=== PATIENT | male | born 1945 | race Caucasian/White ===

== ENCOUNTER → 2024-02-11 07:51 | Outpatient (REF) | payer MEDICARE, OTHER, SELFPAY | LOC: DHCBC/DCA 07:51 | PROVIDERS: ATTENDING PHYSICIAN Family Medicine | DX: I25.10 Atherosclerotic heart disease of native coronary artery without angina pectoris (principal) | CPT/HCPCS: 78452; 93017; A9500 ==

== ENCOUNTER → 2024-03-01 09:55 | Outpatient (REF) | payer MEDICARE, OTHER, SELFPAY | LOC: HWRAD 09:55 | PROVIDERS: ATTENDING PHYSICIAN Urology; FAMILY PHYSICIAN Family Medicine | DX: N20.9 Urinary calculus, unspecified (principal) | CPT/HCPCS: 76775 ==

== ENCOUNTER 2024-05-12 03:24 | Emergency (ER) | payer MEDICARE, OTHER, SELFPAY ==
[2024-05-12 03:29] VITALS: BP 164/84
[2024-05-12 03:46] VITALS: BMI 23.2
--- NOTE | 2024-05-12 04:30 | ED.GENMED ---
History of Present Illness
General
Chief Complaint: Abdominal Pain
Source: patient
Exam Limitations: none
Time Seen by Provider: 05/12/24 04:09
Nursing documentation reviewed up to this point in time: agreed with
History of Present Illness
History of Present Illness:
This is a 79-year-old gentleman who has history of hyperlipidemia, osteoarthritis, remote history of bladder cancer removed by cystoscopy 7 to 8 years ago, not requiring adjuvant chemotherapy.
He complains of somewhat abrupt onset of moderate to severe left lower quadrant abdominal pain that woke him from sleep approximately 2 to 3 hours ago. Left lower quadrant abdominal pain described as sharp accompanied with nausea, feeling somewhat
restless and occasional radiation to his left groin/left testicle. He denies back pain or flank pain, no history of similar episodes of pain. He has not taken anything for discomfort. Pain has improved but has not resolved.
He denies dysuria and urgency and or hematuria, denies diarrhea nor constipation, no fever nor chills.
No history of similar episodes of pain.
He did undergo dental work yesterday, and dental implant and is currently taking amoxicillin and was prescribed tramadol for pain, his last dose was 6:30 PM last night.
His only daily medications are simvastatin, Mobic, vitamins.
He has driven himself to the ED.
Past History
Past History
ED Past Medical History: Cancer (Bladder cancer, removed via cystoscopy 7 to 8 years ago. Not requiring adjuvant chemotherapy.), Hypercholesterolemia and Other (Osteoarthritis)
ED Past Surgical History: Urological
Social History
Tobacco: Non-smoker
Alcohol: Occasional
Personal:
Living: with family
Employment: Retired
Family History
Family History: Other (Noncontributory)
Phy Exam
Physical Exam
Physical Exam:
GENERAL: 79-year-old gentleman appears his stated age, awake and alert, pleasant, appears in no acute distress.
EYE: . anicteric
NECK: Supple, nontender, no meningismus, no significant adenopathy.
ENT: oral mucosa is moist. No rhinorrhea. No gingival edema nor facial swelling.
CARDIAC: Regular rate and rhythm. no murmur.
LUNGS: Clear breath sounds bilaterally, no acute respiratory distress, no wheezes/rales/rhonchi
ABDOMEN: Soft, nondistended, without focal tenderness, no r/g, no cvat. normoactive BS. No inguinal tenderness nor palpable masses.
NEUROLOGICAL: Alert and oriented x3, no focal neuro deficits. Gait is mays and steady.
SKIN: Warm and dry, normal color, skin intact. No rash.
MUSCULOSKELETAL: No C/C/E. peripheral pulses are full and equal b/l. No palpable tenderness.
PSYCH: Normal and appropriate interaction.
Course
Orders/Labs/Results
Orders:
Orders
05/12/24 04:20
Complete Blood Count/With Diff Urgent
Comprehensive Metabolic Panel Urgent
Lactic Acid Urgent
Lipase Urgent
Urinalysis Reflex To Culture Urgent
Date Specimen was Collected: 05/12/24
Time Specimen was Collected: 04:12
Urine Microscopic Reflex Cult Urgent
05/12/24 04:28
Ketorolac [Toradol] 15 mg IV NOW STA
Ondansetron Injectable [Zofran] 4 mg IV NOW STA
05/12/24 04:29
CT Abd/pel Without Iv Or Oral Urgent
Comment:
Reason For Exam: acute LLQ pain w N
Abnormal Lab Results
05/12/24
04:20
RBC 4.37 L 10^6/uL
(4.70-6.10)
MCH 31.6 H pg
(27.0-31.0)
Absolute Lymphs (auto) 0.9 L 10^3/uL
(1.2-3.4)
Neutrophils % 81.1 H %
(42.2-75.2)
Lymphocytes % 12.3 L %
(20.5-51.1)
BUN 29 H mg/dl
(9-20)
Glucose 120 H mg/dl
(70-99)
Lipase 860 H U/L
(23-300)
Urine Ketones Trace A
(Negative)
Ur Occult Blood Reflex 1+ A
(Negative)
05/12/24 04:20
05/12/24 04:20
Vital Signs
Initial and Last Documented VS:
Initial Vital Signs
Temp Pulse Resp BP Pulse Ox
98.9 F 66 24 164/84 100
05/12/24 03:29 05/12/24 03:05/12/24 03:29 05/12/24 03:29 05/12/24 03:29
Last Documented Vital Signs
Temp Pulse Resp BP Pulse Ox
98.9 F 66 24 164/84 100
05/12/24 03:29 05/12/24 03:29 05/12/24 03:29 05/12/24 03:29 05/12/24 03:29
MDM/Problems Addressed
Differential Diagnosis Includes:
Concern for acute renal colic/left ureteric stone, UTI, colitis, constipation, spastic colon, diverticulitis. Less likely ischemic bowel.
Abdominal exam is overall benign, without appreciable tenderness lending made to suspect ureteric stone/renal colic as cause for pain.
Will medicate for pain and nausea, check labs and urinalysis and plan for CT abdomen pelvis.
*Radiology
Radiology exam reviewed: radiology read reviewed (CAT scan shows mild left hydroureteronephrosis secondary to a 7 mm stone lodged in the proximal left ureter.)
*Pulse Oximetry
Patient hypoxic: no
*Critical Care Note
Total Time (30-74mins, 75-104mins- exclusive of procedures): Not Applicable
Update Note
Update Note:
05/12/2024 0603 AM
Patient resting comfortably, reports moderate relief of pain and no further nausea.
Labs are unremarkable save for mildly elevated lipase. He continues to have no epigastric abdominal pain. Creatinine of 1.2, at his baseline.
Urinalysis +1 occult blood, trace ketones otherwise unremarkable.
CAT scan shows a 7 mm stone proximal to mid left ureter with mild hydronephrosis.
Patient does have prior history of kidney stones having passed a 6 mm stone a few years ago. He follows with a urologist through [facility].
Discussed importance of remaining well-hydrated on a daily basis.
Will prescribe Vicodin for as needed pain, Zofran for as needed nausea and recommend prompt follow-up with his urologist.
Return precautions discussed.
ED Attending Note
-
Portions of this chart may have been created with voice recognition software.� Occasional wrong word or��sound alike� substitutions may have occurred due to the inherent limitations of voice recognition software.
Discharge Plan
Departure
Patient Disposition: Home (Routine Discharge)
Date of Disposition: 05/12/24
Time of Disposition: 05:59
Patient with high blood pressure during this ER visit?: Yes
Condition: Good
Discharge Problem:
Calculus of proximal left ureter
Instructions: Kidney Stone, Adult ED, Kidney stone diet, BLOOD PRESSURE
Prescriptions:
New
hydrocodone-acetaminophen 5-300 mg tablet
1 tab PO Q8H PRN (Reason: moderate pain) Qty: 10 0RF
ondansetron 4 mg tablet,disintegrating
4 mg PO QID PRN (Reason: nausea and vomiting) Qty: 20 0RF
Referrals:
Dexter Harris MD [Family Provider] -
Activity Restrictions/Additional Instructions:
Stay well-hydrated on a daily basis.
Follow-up with your urologist regarding 7 mm kidney stone left proximal to mid ureter.
You have been prescribed Vicodin to take 3 times daily as needed for moderate pain as well as ondansetron to take for as needed nausea.
Along with this, ibuprofen is oftentimes helpful for ureteral spasm/kidney stone pain.
If these are ineffective and pain is extreme, or if you continue with pain and begin to develop fever, prompt return to the ER for further evaluation.
Interventions
Interventions:
*Risk Screen - Suicide Last Done: 05/12/24 03:29
*General Assessment Last Done: 05/12/24 03:47
*Neglect/Abuse Screening Last Done: 05/12/24 03:29
ED- Fall Risk Assessment Last Done: 05/12/24 03:47
BY-Svlmyr-Yrzcxmyfwo Assessment Last Done: 05/12/24 03:47
Discharge Date and Time
Print Language: KAZAKH
[2024-05-12 04:34] LABS: % Basophils 0.7 % (0-2); % Immature Granulocytes 0.3 % (0-0.5); % Lymphocytes 12.3 % (20.5-51.1); % Monocytes 4.6 % (1.7-9.3); % Neutrophils 81.1 % (42.2-75.2); Absolute Basophils 0.1 10^3/uL (0-0.2); Absolute Eosinophils 0.1 10^3/uL (0-0.7); Absolute Lymphocytes 0.9 10^3/uL (1.2-3.4); Absolute Monocytes 0.3 10^3/uL (0.1-0.6); Absolute Neutrophils 5.8 10^3/uL (1.4-6.5); Hematocrit 39.9 % (39.0-52.0); Hemoglobin 13.8 g/dL (13.0-18.0); Mean Corp Hgb Conc. 34.6 g/dL (33.0-37.0); Mean Corpuscular Hgb 31.6 pg (27.0-31.0); Mean Corpuscular Volume 91.3 fL (80.0-94.0); Mean Platelet Volume 10.1 fL (7.4-10.4); Nucleated Red Blood Cells % 0 % (-); Platelet Count 145 10^3/uL (130-400); Red Blood Cell Count 4.37 10^6/uL (4.70-6.10); Red Cell Dist. Width 12.7 % (11.5-14.5); White Blood Cell Count 7.1 10^3/uL (4.8-10.8)
[2024-05-12] MEDS: TORADOL 15 MG IV (04:37)
[2024-05-12] MEDS: ZOFRAN 4 MG IV (04:37)
[2024-05-12 04:46] LABS: ALT (SGPT) 22 U/L (0-50); AST (SGOT) 35 U/L (17-59); Albumin 4.6 g/dl (3.5-5.0); Alkaline Phosphatase 62 U/L (38-126); Blood Urea Nitrogen 29 mg/dl (9-20); Calcium 9.7 mg/dl (8.4-10.2); Carbon Dioxide 29 mmol/L (22-30); Chloride 101 mmol/L (98-107); Estimated Creatinine Clearance 56 ml/min; Glucose 120 mg/dl (70-99); Lipase 860 U/L (23-300); Potassium 4.3 mmol/L (3.5-5.1); Sodium 137 mmol/L (135-145); Total Bilirubin 0.9 mg/dl (0.2-1.3); Total Protein 7.2 g/dl (6.3-8.2); eGFR > 60.00
[2024-05-12 04:47] LABS: Lactic Acid 0.8 mmol/L (0.7-2.0)
[2024-05-12 04:48] LABS: Urine Albumin Negative (Neg - Trace); Urine Bilirubin Negative (Negative); Urine Character Clear (Clear); Urine Color Yellow; Urine Glucose Negative (Negative); Urine Ketone Trace (Negative); Urine Leukocyte Negative (Negative); Urine Nitrite Negative (Negative); Urine Occult Blood 1+ (Negative); Urine Specific Gravity 1.025 (<1.030); Urine Urobilinogen Negative (Neg - 1+)
[2024-05-12] MEDS: NORCO 5/325 1 TABLET PO (06:04)
[2024-05-12 06:22] VITALS: BP 134/79
[2024-05-12 06:38] LABS: Urine Bacteria Few (Negative); Urine Red Blood Cell 16-20 /HPF (0-2); Urine White Cell 0-2 /HPF (0-5)
== END 2024-05-12 06:25 | disposition home or self-care (01) ==
LOC: EMR 03:24
PROVIDERS: EMERGENCY PHYSICIAN Emergency Medicine; FAMILY PHYSICIAN Family Medicine
DX: N20.1 Calculus of ureter (principal); E78.00 Pure hypercholesterolemia, unspecified; R03.0 Elevated blood-pressure reading, without diagnosis of hypertension
CPT/HCPCS: 99284; 96374; 96375; 74176; 80053; 81003; 81015; 83605; 83690; 85025

== ENCOUNTER → 2024-07-13 08:23 | Outpatient (REF) | payer MEDICARE, OTHER, SELFPAY | LOC: HWRAD 08:23 | PROVIDERS: ATTENDING PHYSICIAN Urology; FAMILY PHYSICIAN Family Medicine | DX: N20.9 Urinary calculus, unspecified (principal); R10.9 Unspecified abdominal pain; N28.1 Cyst of kidney, acquired | CPT/HCPCS: 76775 ==

== ENCOUNTER → 2025-10-04 10:47 | Outpatient (REF) | payer MEDICARE, OTHER, SELFPAY | LOC: RAD 10:47 | PROVIDERS: ATTENDING PHYSICIAN Urology; FAMILY PHYSICIAN Family Medicine | DX: C67.0 Malignant neoplasm of trigone of bladder (principal) | CPT/HCPCS: 74178; Q9967 ==